=== PATIENT | male | born 1990 | race Caucasian/White ===

== ENCOUNTER 2017-10-27 10:26 | Emergency (ER) | payer OTHER ==
[2017-10-27 10:32] VITALS: BP 141/75; PULSE 86; TEMP 98.2; BMI 22.4
--- NOTE | 2017-10-27 11:12 | PDOC ---
History of Present Illness - General Chief Complaint: Respiratory Stated Complaint: CHEST PAIN Time Seen by Provider: 10/27/17 10:56 History Source: Patient Exam Limitations: No Limitations - History of Present Illness Initial Comments: 10/27/17 11:10 Patient is a [26-year-old male, denies any significant medical history currently on no medication, presents to the Emergency room with tactile fever, headache, generalized aches and pain. No nausea, vomiting or diarrhea. Only has taken "flu tea" ] Past Medical History: [Denies]. Allergies: No known allergies Medications: [None] Family History: Non-contributory Social History: Denies smoking, alcohol use, or IVDU Review of Systems GENERAL/CONSTITUTIONAL: [Tactile fever, no weight change, generalized aches and pains. ] HEAD, EYES, EARS, NOSE AND THROAT: [No change in vision. No ear pain or discharge. No sore throat. ] CARDIOVASCULAR: [No chest pain or shortness of breath.] RESPIRATORY: [No cough, wheezing, or hemoptysis.] GASTROINTESTINAL: [No nausea, vomiting, diarrhea or constipation. No rectal bleeding.] GENITOURINARY: [No dysuria, frequency, or change in urination.] MUSCULOSKELETAL: [No joint or muscle swelling or pain. No neck or back pain.] SKIN AND BREASTS: [No rash or easy bruising.] NEUROLOGIC: [No headache, vertigo, loss of consciousness, or loss of sensation.] PSYCHIATRIC: [No depression or anxiety.] ENDOCRINE: [No increased thirst. No abnormal weight change.] HEMATOLOGIC/LYMPHATIC: [No anemia, easy bleeding, or history of blood clots.] ALLERGIC/IMMUNOLOGIC: [No hives or skin allergy. No latex allergy.] Physical Exam: GENERAL: [The patient is awake, alert, and fully oriented, in no acute distress. ] HEAD: [Normal with no signs of trauma.] EYES: [Pupils equal, round and reactive to light, extraocular movements intact, sclera anicteric, conjunctiva clear.] ENT: [Ears normal, nares patent, oropharynx clear without exudates. Moist mucous membranes. No uvula deviation] NECK: [Normal range of motion, supple without lymphadenopathy, JVD, or masses.] LUNGS: [Breath sounds equal, clear to auscultation bilaterally. No wheezes, and no crackles.] HEART: [Regular rate and rhythm, normal S1 and S2 without murmur, rub or gallop. ] ABDOMEN: [Soft, nontender, normoactive bowel sounds. No guarding, no rebound. No masses. No bruising or abrasions] RECTAL : [Guaiac negative, normal rectal tone.] MUSCULOSKELETAL: [Normal range of motion, no edema. No clubbing or cyanosis. No cords, erythema, or tenderness. No CVA Tenderness with fist.] NEUROLOGICAL: [Cranial nerves II through XII grossly intact. Normal speech, normal gait.] PSYCH: [Normal mood, normal affect.] SKIN: [Warm, Dry, normal turgor, no rashes or lesions noted.] Past History - Past Medical History Allergies/Adverse Reactions: Allergies Allergy/AdvReac Type Severity Reaction Status Date / Time No Known Allergies Allergy Verified 10/27/17 10:32 Home Medications: Ambulatory Orders Pantoprazole Sodium [Protonix -] 40 mg PO DAILY #30 tablet.ec 10/24/16 Ibuprofen [Motrin -] 600 mg PO QID #28 tablet 10/27/17 Anemia: No Cancer: No Cardiac Disorders: No CVA: No COPD: No GI Disorders: Yes (H.Pylori) HTN: No - Suicide/Smoking/Psychosocial Hx Smoking History: Never smoked Have you smoked in the past 12 months: No Hx Alcohol Use: Yes (occasional) Drug/Substance Use Hx: No Substance Use Type: None Hx Substance Use Treatment: No *Physical Exam - Vital Signs Last Vital Signs Temp Pulse Resp BP Pulse Ox 98.2 F 86 18 141/75 100 10/27/17 10:30 10/27/17 10:30 10/27/17 10:30 10/27/17 10:30 10/27/17 10:30 Medical Decision Making - Medical Decision Making 10/27/17 11:29 A/P: Patient here for evaluation of influenza-type illness, rapid influenza and rapid strep sent awaiting results. 10/27/17 13:09 Rapid influenza and rapid strep are both negative, we'll send patient to x-ray to rule out pneumonia patient complaining of pain to chest when coughing although cough is nonproductive 10/27/17 14:16 Chest x-ray is negative for acute cardiopulmonary disease will DC patient home, with viral illness reports that he feels better after Motrin 600 was given in ER. I discussed the physical exam findings, ancillary test results and final diagnoses with the patient. I answered all of the patient's questions. The patient was satisfied with the care received and felt comfortable with the discharge plan and treatment plan. The patient will call to arrange follow-up and will return to the Emergency Department with any new, persistent or worsening symptoms. 10/27/17 14:16 *DC/Admit/Observation/Transfer Diagnosis at time of Disposition: Viral illness - Discharge Dispostion Disposition: HOME Condition at time of disposition: Good Admit: No - Prescriptions Prescriptions: Ibuprofen [Motrin -] 600 mg PO QID #28 tablet - Referrals Referrals: Jennifer Busch MD [Primary Care Provider] - - Patient Instructions Additional Instructions: Increase fluids to prevent dehydration Tylenol for headache Motrin for fever greater than 101.0 Please followup with primary care in 3 days if symptoms persist Return to emergency department any increased cough, fever, inability to drink or other concerns - Post Discharge Activity Forms/Work/School Notes: Back to Work
[2017-10-27] MEDS ORDERED: IBUPROFEN 600 MG TABLET (FP) PO ONE ×2 (11:30→11:31)
== END 2017-10-27 13:38 | disposition home or self-care (01) ==
LOC: JERFT 10:26
DX: B34.9 Viral infection, unspecified (principal)
CPT/HCPCS: 71020-TC; 87070; 87430; 87804; 99281-25

== ENCOUNTER 2018-02-27 00:56 | Emergency (ER) | payer OTHER ==
[2018-02-27 01:11] VITALS: BP 114/75; PULSE 84; BMI 55.3
--- NOTE | 2018-02-27 01:58 | PDOC ---
History of Present Illness - General Chief Complaint: Palpitations Stated Complaint: CHEST DISCOMFORT Time Seen by Provider: 02/27/18 01:32 History Source: Patient Exam Limitations: No Limitations - History of Present Illness Initial Comments: 02/27/18 01:53 Patient is a 27-year-old male history here with complaints of palpitations which started prior to presentation. Patient states that he woke up with symptoms this heart was racing, and he was shaking and associated with some dizziness - described as lightheadedness. Denies chest pain, shortness of breath. patient states that he went out with friends tonight and he had a mixed drink thinks that might account for his symptoms. No prior episode. PMD: Dr. Avelar PMHX neg PSOCHX; neg drug, occ etoh ALL: NKDA GENERAL/CONSTITUTIONAL: [No fever or chills. No weakness. No weight change.] HEAD, EYES, EARS, NOSE AND THROAT: [No change in vision. No ear pain or discharge. No sore throat.] CARDIOVASCULAR: [No chest pain or shortness of breath.] RESPIRATORY: [No cough, wheezing, or hemoptysis.] GASTROINTESTINAL: [No nausea, vomiting, diarrhea or constipation. No rectal bleeding.] GENITOURINARY: [No dysuria, frequency, or change in urination.] MUSCULOSKELETAL: [No joint or muscle swelling or pain. No neck or back pain.] SKIN AND BREASTS: [No rash or easy bruising.] NEUROLOGIC: [No headache, vertigo, loss of consciousness, or loss of sensation.] PSYCHIATRIC: [No depression or anxiety.] ENDOCRINE: [No increased thirst. No abnormal weight change.] HEMATOLOGIC/LYMPHATIC: [No anemia, easy bleeding, or history of blood clots.] ALLERGIC/IMMUNOLOGIC: [No hives or skin allergy. No latex allergy.] GENERAL: [The patient is awake, alert, and fully oriented, in no acute distress. ] HEAD: [Normal with no signs of trauma.] EYES: [Pupils equal, round and reactive to light, extraocular movements intact, sclera anicteric, conjunctiva clear.] ENT: [Ears normal, nares patent, oropharynx clear without exudates. Moist mucous membranes.] NECK: [Normal range of motion, supple without lymphadenopathy, JVD, or masses.] LUNGS: [Breath sounds equal, clear to auscultation bilaterally. No wheezes, and no crackles.] HEART: [Regular rate and rhythm, normal S1 and S2 without murmur, rub.] ABDOMEN: [Soft, nontender, normoactive bowel sounds. No guarding, no rebound. No masses.] EXTREMITIES: [Normal range of motion, no edema. No clubbing or cyanosis. No cords, erythema, or tenderness.] NEUROLOGICAL: [Cranial nerves II through XII grossly intact. Normal speech, normal gait.] PSYCH: [Normal mood, normal affect.] SKIN: [Warm, Dry, normal turgor, no rashes or lesions noted.] Past History - Past Medical History Allergies/Adverse Reactions: Allergies Allergy/AdvReac Type Severity Reaction Status Date / Time No Known Allergies Allergy Verified 02/27/18 01:09 Anemia: No Cancer: No Cardiac Disorders: No CVA: No COPD: No GI Disorders: Yes (H.Pylori) HTN: No - Suicide/Smoking/Psychosocial Hx Smoking History: Never smoked Have you smoked in the past 12 months: No Hx Alcohol Use: Yes (occasional) Drug/Substance Use Hx: No Substance Use Type: None Hx Substance Use Treatment: No *Physical Exam - Vital Signs Last Vital Signs Temp Pulse Resp BP Pulse Ox 84 18 114/75 98 02/27/18 01:10 02/27/18 01:10 02/27/18 01:10 02/27/18 01:10 ED Treatment Course - ADDITIONAL ORDERS Additional order review: Laboratory Results 02/27/18 01:36 POC Glucometer [id number] 02/27/18 01:36 POC Glucometer [id number] Medical Decision Making - Medical Decision Making 02/27/18 01:53 Patient is a 27-year-old male history here with complaints of palpitations which started prior to presentation, consistent with a panic attack. EKG and FS. EKG SR rate 77, NAD, (-) ST-T wave changes. I discussed the physical exam findings, ancillary test results and final diagnoses with the patient. I answered all of the patient's questions. The patient was satisfied with the care received and felt comfortable with the discharge plan and treatment plan. The Patient agrees to follow up with the primary care physician within 24-72 hours. *DC/Admit/Observation/Transfer Diagnosis at time of Disposition: Palpitations - Discharge Dispostion Disposition: HOME Condition at time of disposition: Stable - Referrals Referrals: Jennifer Busch MD [Primary Care Provider] - - Patient Instructions Printed Discharge Instructions: DI for Palpitations Additional Instructions: Your Discharge Instructions: You must call primary care physician within 24 hours to arrange follow-up. Return to the Emergency Department with any new, persistent or worsening symptoms, for fever, chills, SOB, dizziness or any other concerning changes that may occur. - Post Discharge Activity
--- NOTE | 2018-02-27 12:13 | EKG ---
Test Reason : Blood Pressure : / mmHG Vent. Rate : 077 BPM Atrial Rate : 077 BPM P-R Int : 166 ms QRS Dur : 106 ms QT Int : 356 ms P-R-T Axes : 060 047 037 degrees QTc Int : 402 ms NORMAL SINUS RHYTHM NORMAL ECG NO PREVIOUS ECGS AVAILABLE Confirmed by KIM MENON MD ([id number]) on 02/27/2018 12:12:48 PM Referred By: Confirmed By:KIM MEONN MD
== END 2018-02-27 02:30 | disposition home or self-care (01) ==
LOC: JER 00:56
DX: R00.2 Palpitations (principal)
CPT/HCPCS: 82962; 93005; 93010; 99282-25

== ENCOUNTER 2019-10-04 17:17 | Emergency (ER) | payer OTHER ==
[2019-10-04 17:50] VITALS: BP 128/71; PULSE 80; TEMP 98.1; BMI 24.4
--- NOTE | 2019-10-04 19:20 | PDOC ---
History of Present Illness - General Chief Complaint: Pain Stated Complaint: SORE THROAT/EAR PAIN Time Seen by Provider: 10/04/19 18:31 History Source: Patient, Spouse Exam Limitations: No Limitations Past History - Past Medical History Allergies/Adverse Reactions: Allergies Allergy/AdvReac Type Severity Reaction Status Date / Time No Known Allergies Allergy Verified 10/04/19 17:45 Anemia: No Cancer: No Cardiac Disorders: No CVA: No COPD: No GI Disorders: Yes (H.Pylori) HTN: No - Psycho Social/Smoking Cessation Hx Smoking History: Current some day smoker Have you smoked in the past 12 months: No Number of Cigarettes Smoked Daily: 0 Information on smoking cessation initiated: Yes Hx Alcohol Use: Yes Drug/Substance Use Hx: No Substance Use Type: None Hx Substance Use Treatment: No *Physical Exam - Vital Signs Last Vital Signs Temp Pulse Resp BP Pulse Ox 98.1 F 80 18 128/71 98 10/04/19 17:46 10/04/19 17:46 10/04/19 17:46 10/04/19 17:46 10/04/19 17:46 - Physical Exam General Appearance: No: Apparent Distress HEENT: positive: Normal Voice, TMs Normal, Pharynx Normal. negative: Muffled/ Hoarse voice, Pharyngeal Erythema, Tonsillar Exudate, Nasal Congestion, Rhinorrhea, Sinus Tenderness Respiratory/Chest: positive: Lungs Clear, Normal Breath Sounds. negative: Respiratory Distress Cardiovascular: positive: Regular Rhythm, Regular Rate, S1, S2. negative: Murmur Integumentary: positive: Normal Color Neurologic: positive: Alert Medical Decision Making - Medical Decision Making 28 y/o M with no sig pmg presents with sensation of something along left side of throat x 3 weeks after eating popcorn. Went to urgent care at the time, but nothing wrong was found. States the pain started radiating to L ear x 1 week. Is able to eat and drink. Denies fever, sob, cp, abd pain, n/v/d. ENT exam unremarkable Will refer to ENT for further eval 10/04/19 19:10 Discharge - Discharge Information Problems reviewed: Yes Clinical Impression/Diagnosis: Throat discomfort Condition: Stable Disposition: HOME - Admission No - Additional Discharge Information Prescription Drug Monitoring Program (I-STOP) results: I-STOP not reviewed - Follow up/Referral Referrals: Gabriel Lynne [Primary Care Provider] - Jhoan Sloan MD [Staff Physician] - 2 Days - Patient Discharge Instructions Additional Instructions: Thank you for choosing [facility]. It was a pleasure taking care of you. You were referred to ENT for further evaluation of your symptoms Return to the Emergency Department if your symptoms worsen or persist, you have fever, shortness of breath, unable to swallow or other concerning symptoms. - Post Discharge Activity
== END 2019-10-04 19:44 | disposition home or self-care (01) ==
LOC: JERFT 17:17 → JER 17:17 → JERFT 19:44
DX: J02.9 Acute pharyngitis, unspecified (principal); F17.210 Nicotine dependence, cigarettes, uncomplicated
CPT/HCPCS: 99281-25

== ENCOUNTER 2023-04-14 10:23 | Emergency (ER) | payer BC, OTHER ==
[2023-04-14 10:34] VITALS: TEMP 98.9; BMI 24.4
[2023-04-14] MEDS ORDERED: SODIUM CHLORIDE 0.9% 500 ML INFUS.BAG IV ONE (11:41)
[2023-04-14] MEDS ORDERED: METOCLOPRAMIDE HCL INJECTION 10 MG/2 ML VIAL IVPUSH ONE (11:41)
[2023-04-14] MEDS ORDERED: ACETAMINOPHEN 1000 MG/100 ML BAG IVPB ONE (11:49)
[2023-04-14] MEDS ORDERED: ACETAMINOPHEN INJECTION 100 ML IVPB ONE (12:06)
[2023-04-14] MEDS ORDERED: METOCLOPRAMIDE HCL INJECTION 10 MG/2 ML VIAL ONE (12:06)
[2023-04-14 13:23] LABS: BASO % 0.3 % (0-2.0); EOS % 1.2 % (0-4.5); HEMATOCRIT 43.7 % (35.4-49); HEMOGLOBIN 14.9 GM/dL (11.7-16.9); LYMPH % 26.1 % (8-40); MCH 29.9 pg (25.7-33.7); MCHC 34.2 g/dl (32.0-35.9); MEAN CELL VOLUME 87.5 fl (80-96); MONO % 6.9 % (3.8-10.2); NEUT % 65.5 % (42.8-82.8); PLATELET COUNT 216 10^3/uL (134-434); RDW 12.4 % (11.9-15.9); WHITE BLOOD COUNT 6.1 K/mm3 (4.0-10.0)
[2023-04-14 13:49] LABS: POTASSIUM 4.3 mmol/L (3.5-5.1)
[2023-04-14 13:52] LABS: BLOOD UREA NITROGEN 15.4 mg/dL (7-18); CALCIUM 9.4 mg/dL (8.5-10.1); MAGNESIUM 2.1 mg/dL (1.8-2.4)
[2023-04-14 13:55] LABS: CREATININE 1.1 mg/dL (0.55-1.3)
[2023-04-14 13:57] LABS: TOT PROT 7.4 g/dl (6.4-8.2)
[2023-04-14 14:54] VITALS: BP 121/73; PULSE 75; RESP 20
== END 2023-04-14 14:55 | disposition home or self-care (01) ==
LOC: JER 10:23
PROC: 3E033NZ Introduction of Analgesics, Hypnotics, Sedatives into Peripheral Vein, Percutaneous Approach (ICD-10-PCS; principal; 2023-04-14)
PROC: 3E033GC Introduction of Other Therapeutic Substance into Peripheral Vein, Percutaneous Approach (ICD-10-PCS; 2023-04-14)
DX: R53.1 Weakness (principal); G44.209 Tension-type headache, unspecified, not intractable; Z20.822 Contact with and (suspected) exposure to COVID-19
CPT/HCPCS: 0241U-QW; 36415; 80053; 83735; 85025; 93005; 93010; 99284-25